=== PATIENT | female | born 1980 | race Two or more races ===

== ENCOUNTER 2017-07-19 17:52 | Emergency (ER) | payer OTHER ==
[2017-07-19] MEDS ORDERED: LIDOCAINE 1%/EPINEPHRINE INJ 20 ML VIAL INJ ONE (18:12)
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
[2017-07-19] MEDS ORDERED: KETOROLAC TROMETHAMINE INJ/PF 30 MG/1 ML SDV IV ONE (19:32)
== END 2017-07-19 19:55 | disposition home or self-care (01) ==
LOC: ER 17:52
PROC: 0HQ1XZZ Repair Face Skin, External Approach (ICD-10-PCS; principal; 2017-07-19)
DX: S01.81XA Laceration without foreign body of other part of head, initial encounter (principal); S16.1XXA Strain of muscle, fascia and tendon at neck level, initial encounter; S20.211A Contusion of right front wall of thorax, initial encounter; V89.2XXA Person injured in unspecified motor-vehicle accident, traffic, initial encounter
CPT/HCPCS: 99284; 71020; 70486; 72125; 12011; J3490; J1885